=== PATIENT | female | born 1955 | race Caucasian/White ===

== ENCOUNTER 2021-11-07 13:24 | Emergency (ER) | payer MEDICARE, SELFPAY ==
--- NOTE | ~2021-11-07 | XR_ITS ---
EXAM: XR shoulder LT min 2V DATE: 11/07/2021 14:17 HISTORY: KNI. LROM WITH PAIN X 1 DAY. . COMPARISON: None available. FINDINGS: Decreased mineralization. No fracture or dislocation. No lytic or blastic lesion. Degenera tive change at the AC joint and glenohumeral joint. No erosion or periosteal change. Soft tissues wit hin normal limits. IMPRESSION: No acute osseous finding in the left shoulder. Reviewed, dictated and finalized at location K.
[2021-11-07 13:35] VITALS: BP 138/97; PULSE 77; RESP 16; TEMP 37.4; O2SAT 100
--- NOTE | 2021-11-07 13:42 | ED.UPPEXIN ---
HPI - Extremity Injury (Upper) General Chief Complaint: Extremity Injury, Upper Stated Complaint: Left Shoulder Pain Time Seen by Provider: 11/07/21 13:42 Source: patient, RN notes reviewed and old records reviewed Mode of arrival: ambulatory Limitations: no limitations Related Data Home Medications Medication Instructions Recorded Confirmed dulaglutide 3 mg/0.5 mL See Rx Instructions .Route .COMPLEX 11/07/21 11/07/21 subcutaneous pen injector (Trulicity) glipizide 5 mg tablet 5 mg PO BID 11/07/21 11/07/21 meloxicam 7.5 mg tablet 1 tablet PO DAILY 11/07/21 11/07/21 metformin 1,000 mg tablet 1,000 mg PO BID 11/07/21 11/07/21 oxybutynin chloride 5 mg tablet 5 mg PO DAILY 11/07/21 11/07/21 topiramate 100 mg capsule 100 mg PO DAILY 11/07/21 11/07/21 sprinkle,extended release 24 hr Allergies Allergy/AdvReac Type Severity Reaction Status Date / Time Sulfa (Sulfonamide Allergy Unknown Verified 11/07/21 13:41 Antibiotics) Course Vital Signs Vital signs: Vital Signs Temperature 37.4 C 11/07/21 13:35 Pulse Rate 77 11/07/21 13:35 Respiratory Rate 16 11/07/21 13:35 Blood Pressure 138/97 H 11/07/21 13:35 Pulse Oximetry 100 11/07/21 13:35 Oxygen Delivery Room Air 11/07/21 13:35 Temperature 37.4 C 11/07/21 13:35 Pulse Rate 77 11/07/21 13:35 Respiratory Rate 16 11/07/21 13:35 Blood Pressure 138/97 H 11/07/21 13:35 Pulse Oximetry 100 11/07/21 13:35 Oxygen Delivery Room Air 11/07/21 13:35 Discharge Plan Discharge Patient Disposition: Home, Self-Care Condition: Stable Instructions: Antibiotic Form Prescriptions: No Action meloxicam 7.5 mg tablet 1 tablet PO DAILY metformin 1,000 mg tablet 1,000 mg PO BID oxybutynin chloride 5 mg tablet 5 mg PO DAILY glipizide 5 mg tablet 5 mg PO BID topiramate 100 mg capsule,sprinkle,ER 24hr 100 mg PO DAILY Trulicity 3 mg/0.5 mL pen injector See Rx Instructions .ROUTE .COMPLEX Rx Instructions: WEEKLY Follow-up/Referrals: Montez,Rafiq Robb MD [Primary Care Provider] -
--- NOTE | 2021-11-07 14:19 | ED.GENADULT ---
HPI - General Adult General Chief complaint: Extremity Injury, Upper Stated complaint: Left Shoulder Pain Time Seen by Provider: 11/07/21 13:42 Source: patient, RN notes reviewed and old records reviewed Mode of arrival: ambulatory Limitations: no limitations History of Present Illness HPI narrative: 66 year old female present to express care with complaints of left shoulder pain and popping with movement. Patient reports that she was washing dishes this morning and she felt this pop in her left shoulder and everytime she moves her shoulder it has pain and continued popping. Patient reports that she has taken some Ibuprofen for her discomfort. Patient reports that pain continues with movement and she has some pain into her upper arm also. Patient denies any tingling or numbness to her arm or hand has strong pulses to left arm, scapula are symmetrical. MD complaint: left shoulder pain and popping Treatments prior to arrival: NSAID Related Data Home Medications Medication Instructions Recorded Confirmed dulaglutide 3 mg/0.5 mL See Rx Instructions .Route .COMPLEX 11/07/21 11/07/21 subcutaneous pen injector (Trulicity) glipizide 5 mg tablet 5 mg PO BID 11/07/21 11/07/21 meloxicam 7.5 mg tablet 1 tablet PO DAILY 11/07/21 11/07/21 metformin 1,000 mg tablet 1,000 mg PO BID 11/07/21 11/07/21 oxybutynin chloride 5 mg tablet 5 mg PO DAILY 11/07/21 11/07/21 topiramate 100 mg capsule 100 mg PO DAILY 11/07/21 11/07/21 sprinkle,extended release 24 hr Allergies Allergy/AdvReac Type Severity Reaction Status Date / Time Sulfa (Sulfonamide Allergy Unknown Verified 11/07/21 13:41 Antibiotics) Review of Systems Review of Systems: CONSTITUTIONAL: Denies fever, chills, or sweats. EYES: Denies visual changes, redness, or discharge. ENT: Denies rhinorrhea, congestion, sore throat, or otalgia. CARDIOVASCULAR: Denies chest pain, palpitations, or edema. RESPIRATORY: Denies cough or dyspnea. GASTROINTESTINAL: Denies abdominal pain, nausea, vomiting, or diarrhea. GENITOURINARY: Denies dysuria or hematuria. SKIN: Denies rash or itching. MUSCULOSKELETAL: Denies back pain, positive for left shoulder pain with popping at AC joint with movement, or myalgia. NEUROLOGIC: Denies headache, numbness, or weakness. PSYCHIATRIC: Positive for history of anxiety or depression. [facility] Past Medical History Medical History (Updated 11/09/21 @ 09:32 by Anabell Newton NP) Anxiety Asthma Bronchitis CVA (cerebral vascular accident) Diabetes Surgical History Surgical History (Updated 11/09/21 @ 09:30 by Anabell Newton NP) H/O umbilical hernia repair Social History Social History (Updated 11/09/21 @ 09:29 by Anabell Newton NP) Smoking status: Former smoker Tobacco type: cigarettes Additional smoking assessment comments: quit 1989 Alcohol intake: current Alcohol use details: rare social Substance use: never Living arrangements: with family Gender identity (if verbalized by the patient): Female Comments At time of signature, agree with nursing past medical, surgical, social and family history. There is no relevant family history pertinent to the presenting complaint Exam Narrative: GENERAL: Well-appearing, well-nourished, and in no acute distress. HEAD: Normocephalic, atraumatic. EYES: PERRLA and EOMI. ENT: Nares clear, no rhinorrhea or epistaxis. Mucous membranes moist.TM's normal with good light reflex, throat pink with no lesions or exudates, no tonsil swelling NECK: Supple.no lymphadenopathy CHEST: Clear to auscultation. No respiratory distress.SAO2 100% on room air HEART: Regular rate and rhythm. No murmur heard. Normal peripheral pulses. ABDOMEN: Soft, nontender, nondistended, normal active bowel sounds. EXTREMITIES: Normal range of motion. No edema.Pain when lifting or extending left shoulder with crepitus palpable in AC joint, circulation and sensation is intact to left arm, no obvious deformity noted, scapul
== END 2021-11-07 15:17 | disposition home or self-care (01) ==
PROVIDERS: Emergency Provider Registered Nurse; PCP Internal Medicine
DX: M25.512 Pain in left shoulder (principal); Z87.891 Personal history of nicotine dependence; J45.909 Unspecified asthma, uncomplicated; E11.9 Type 2 diabetes mellitus without complications; Z86.73 Personal history of transient ischemic attack (TIA), and cerebral infarction without residual deficits
CPT/HCPCS: 73030; 99203; G0463

== ENCOUNTER 2024-03-13 09:01 | Emergency (ER) | payer MEDICARE, SELFPAY ==
[2024-03-13 09:21] VITALS: BP 137/65; PULSE 110; RESP 22; TEMP 37; O2SAT 96
--- NOTE | 2024-03-13 09:59 | ED_ITS ---
HPI - URI/Sore Throat General Chief Complaint: Upper Respiratory Infection Stated Complaint: Congestioin/Sore Throat/Runny Nose Time Seen by Provider: 03/13/24 09:59 Source: patient, RN notes reviewed and old records reviewed Mode of arrival: ambulatory Limitations: no limitations History of Present Illness HPI Narrative: 69 year old female who presents to [facility] care with complaints of sinus congestion and drainage which started 2 days ago with headache discomfort and pressure in face. Patient reports she was up half the night with her symptoms. Patient reports history of sinus infection, asthma and bronchitis in the past no acute cough reported SAO2 96% on room air. Patient reports that she has been taking Claritin for her symptoms. MD elicited complaint: rhinorrhea and nasal congestion Pertinent past history: sinusitis, asthma and other (bronchitis) Onset (ago): day(s) (2) Severity: moderate Able to tolerate fluids by mouth: Yes Treatments prior to arrival: other (Claritin) Related Data Home Medications Medication Instructions Recorded Confirmed glipizide 5 mg tablet 5 mg PO BID 11/07/21 03/13/24 meloxicam 7.5 mg tablet 1 tablet PO DAILY 11/07/21 03/13/24 metformin 1,000 mg tablet 1,000 mg PO BID 11/07/21 03/13/24 oxybutynin chloride 5 mg tablet 5 mg PO BID 11/07/21 03/13/24 semaglutide 1 mg/dose (4 mg/3 mL) 1 mg subcut WEEKLY 03/13/24 03/13/24 subcutaneous pen injector (Ozempic) Allergies Allergy/AdvReac Type Severity Reaction Status Date / Time Sulfa (Sulfonamide Allergy Unknown Verified 11/07/21 13:41 Antibiotics) Review of Systems Review of Systems: CONSTITUTIONAL: Denies malaise, chills, sweats, or fever. EYES: Denies visual changes, redness, or discharge. ENT: Reports rhinorrhea, congestion, sinus pain, no otalgia and no sore throat. CARDIOVASCULAR: Denies chest pain, palpitations, or edema. RESPIRATORY: Reports no acute cough.? Denies dyspnea. GASTROINTESTINAL: Denies abdominal pain, nausea, vomiting, diarrhea SKIN: Denies rash or itching. MUSCULOSKELETAL: Denies myalgia. NEUROLOGIC: Reports frontal headache. All systems reviewed & are unremarkable except as noted in HPI and below PMFSH Past Medical History Medical History Anxiety Asthma Bronchitis CVA (cerebral vascular accident) Diabetes Surgical History Surgical History H/O umbilical hernia repair Social History Social History Smoking status: Former smoker Tobacco type: cigarettes Additional smoking assessment comments: quit 1989 Alcohol intake: current Alcohol use details: rare social Substance use: never Living arrangements: with family Gender identity (if verbalized by the patient): Female Comments At time of signature, agree with nursing past medical, surgical, social and family history. There is no relevant family history pertinent to the presenting complaint Exam Narrative: GENERAL: Well-appearing, well-nourished, and in no acute distress. HEAD: Normocephalic EYES: PERRLA, conjunctivae clear ENT: Nares clear, turbinates edematous and erythematous, clear light yellow tinged discharge, sinus pressure and headache Mucous membranes moist. TM pearly rowan with dull light reflex bilaterally; no tragal tenderness. Oropharynx erythematous without lesions. Tonsils not enlarged and without exudate, no drooling, no hoarseness, no trismus, uvula midline.post nasal drainage. NECK: Supple. No lymphadenopathy CHEST: Clear to auscultation, breath sounds equal. No wheezing, rhonchi, rales, or stridor. No respiratory distress, speaks in full sentences.SAO2 96% on room air HEART: Regular rate and rhythm. No murmur heard. SKIN: Warm, dry, no rash. NEURO: Alert and oriented x3. PSYCH: Normal mood and affect Course Course Emergency Course: Patient is aware of diagnosis, understands and agrees to treatment plan.? Anticipatory guidance given.? Patient agrees to follow-up as directed and is aware of reasons to seek care at the emergency department. Portions of this record may have been created with voice recognition software Level of Care: Express Care Visit Vital Signs Vital signs: Vital Signs Temperature 37.0 C 03/13/24 09:21 Pulse Rate 110 H 03/13/24 09:21 Respiratory Rate 22 H 03/13/24 09:21 Blood Pressure 137/65 03/13/24 09:21 Pulse Oximetry 96 03/13/24 09:21 Oxygen Delivery Room Air 03/13/24 09:21 Temperature 37.0 C 03/13/24 09:21 Pulse Rate 110 H 03/13/24 09:21 Respiratory Rate 22 H 03/13/24 09:21 Blood Pressure 137/65 03/13/24 09:21 Pulse Oximetry 96 03/13/24 09:21 Oxygen Delivery Room Air 03/13/24 09:21 Reviewed MDM - URI/Sore Throat MDM Narrative Medical decision making narrative: Differential diagnosis considered: Smith virus, strep pharyngitis, allergic rh initis, upper respiratory tract infection, sinusitis, rhinosinusitis, nasopharyngitis. viral pharyngitis, otitis media, otitis externa, pneumonia, bronchitis, viral cough syndrome, viral syndrome, and influenza.? Exam findings show no acute concerns or changes; patient is non-toxic appearing and is in no distress.? Patient is appropriate for outpatient treatment and follow-up. Differential Diagnosis Differential diagnosis: Likely upper respiratory infection, sinusitis, viral infection, influenza and other (COVID) Medical Records Attestation: I reviewed the patient's medical records. Lab Data Attestation: I reviewed the patient's lab results. Lab results narrative: Influenza A negative, Influenza B Negative, COVID antigen negative Labs: Lab Results 03/13/24 Range/Units 10:10 POC Influenza A Ag Negative (Negative) POC Influenza B Ag Negative (Negative) POC SARS CoV-2 Ag Negative (Negative) reviewed Critical Care Time Critical Care Time Critical Care Time: No Discharge Plan Discharge Clinical Impression: Acute bacterial sinusitis Patient Disposition: Home, Self-Care Condition: Stable Instructions: Antibiotic Form, Sinusitis (ED) Additional Instructions: Increase fluids especially juices and water [id number] cough and cold medicine of your choice for your symptoms Zyrtec Claritin or Divya daily include Coricidin brand decongestant Continue your inhaler/nebulizer as directed heat to the face 20-30 minutes 4-6 times a day for pain Salt water gargles, throat lozenges or throat sprays as desired Antibiotic as directed--finished the medication If your symptoms persist, change or worsen significantly before you can contact your personal physician then please, without delay, go to the emergency department for further evaluation. Follow-up with PCP in 7-10 days or sooner if needed Follow up with PCP soon in regards to your blood pressure which is elevated above threshold for referral. Blood pressure above 120/80 may indicate pre- hypertension. 137/65 Prescriptions: New azithromycin 250 mg tablet See Rx Instructions .ROUTE .COMPLEX Qty: 6 0RF Rx Instructions: For 250 mg dose pack: take 500 mg today (day 1), then 250 mg for 4 days (days 2-5) No Action meloxicam 7.5 mg tablet 1 tablet PO DAILY metformin 1,000 mg tablet 1,000 mg PO BID oxybutynin chloride 5 mg tablet 5 mg PO BID glipizide 5 mg tablet 5 mg PO BID Ozempic 1 mg/dose (4 mg/3 mL) pen injector 1 mg SUBCUT WEEKLY Follow-up/Referrals: Montez,Rafiq Robb MD [Primary Care Provider] - Time of Disposition: 10:15 Quality [place] Coma Scale Eyes: Open Verbal: Oriented and Alert Motor: Follows Commands [place] Coma Total Score: 15
[2024-03-13 10:11] LABS: EDCOVIDSCREEN Negative (Negative); EDINFLUASCREEN Negative (Negative); EDINFLUBSCREEN Negative (Negative)
== END 2024-03-13 10:15 | disposition home or self-care (01) ==
PROVIDERS: Emergency Provider Registered Nurse; PCP Internal Medicine
DX: J01.90 Acute sinusitis, unspecified (principal); Z20.822 Contact with and (suspected) exposure to COVID-19; J45.909 Unspecified asthma, uncomplicated; E11.9 Type 2 diabetes mellitus without complications; Z79.84 Long term (current) use of oral hypoglycemic drugs; Z86.73 Personal history of transient ischemic attack (TIA), and cerebral infarction without residual deficits
CPT/HCPCS: 87426; 87804; 99213; G0463